=== PATIENT | female | born 1950 | race Caucasian/White ===

== ENCOUNTER 2019-08-18 03:38 | Emergency (ER) | payer OTHER ==
[~2019-08-18] VITALS: Ht 157.5 cm; Wt 82.6 kg
--- NOTE | ~2019-08-18 | EMS ---
[address] [address] EMS Patient Care Report Name: MALIK PETERSEN Room #: REG JIMMY Garcia#: [id number] Admission: 08/18/19 Attend Phys: Discharge: Date of : 50 Report #: [id number] THIS REPORT FOR: //name// Report Transmitted: 08/18/2019 03:27 EMS Care Summary [place], [place]/[facility] Incident [id number] @ 08/18/2019 02:48 Incident Location [address] [place], [place] [id number] Patient MALIK PETERSEN Female, 69 Years 1950 Patient Address [address] [place], [place] [id number] Patient History Hypertension, Patient Allergies Aspirin, Patient Medications Spironolactone, Pantoprazole, Metoprolol, Duloxetine, Amlodipine, Atorvastatin, Nystatin, Chief Complaint CARDIAC ARREST Disposition Transported [place] Dispatch Reason Cardiac Arrest/ Transported To [facility] Narrative M28 ARRIVES TO FIND 69 Y/O F PT PULSELESS AND APNEIC LYING ON HER BEDROOM FLOOR. PER FAMILY ON SCENE, PT "FAINTED" AND WAS FOUND TO BE IN CARDIAC ARREST. FAMILY BEGAN CPR INSTRUCTED BY CUTTER HOT KNIFE. [address] [address] EMS Patient Care Report Name: MALIK PETERSEN Room #: REG ER Radha#: [id number] Admission: 08/18/19 Attend Phys: Discharge: Date of : 50 Report #: [id number] ASSESSMENTS AND TREATMENTS NOTED. CPR CONTINUED THROUGHOUT UNLESS PAUSED FOR NO MORE THAN FIVE SECONDS FOR PULSE AND RHYTHM CHECKS. PT MOVED TO COT VIA SPINE BOARD. PT MOVED TO AMBULANCE. PT TRANSPORTED. M28 ARRIVES AT DESTINATION. PT MOVED TO ROOM IN ED. PT MOVED TO BED IN ROOM VIA SPINE BOARD. PT CARE TRANSFERRED. M28 RETURNS TO SERVICE. Initial Vitals @03:34P: 0,R: 15,GCS: 3,EtCO2: 77, @02:58P: 0,R: 12,Pain: 0/10,GCS: 3,Glucose: 198, @03:24P: 0,R: 12,Pain: 0/10,GCS: 3,EtCO2: 43, @03:36P: 0,R: 8,GCS: 3,EtCO2: 69, @03:20P: 0,R: 7,GCS: 3,EtCO2: 13, @03:29P: 0,R: 12,GCS: 3,EtCO2: 25, @03:14P: 0,R: 5,GCS: 3,EtCO2: 68, @03:09P: 0,R: 12,GCS: 3, @03:25P: 0,R: 6,Pain: 0/10,GCS: 3,EtCO2: 67, @03:03P: 0,R: 12,GCS: 3, Assessments @03:15MENTAL:Unresponsive,SKIN:Cyanotic,Pale,HEENT:Eyes: Left: Non-Reactive,Eyes: Left: Dilated,Eyes: Right: Dilated,Eyes: Right: Non-Reactive,Head/Face: No Abnormalities,Neck/Airway: No Abnormalities,LUNG SOUNDS:General: No Abnormalities,Left Upper: No Abnormalities,Right Upper: No Abnormalities,Left Lower: No Abnormalities,Right Lower: No Abnormalities,ABDOMEN:General: No Abnormalities,Left Upper: No Abnormalities,Right Upper: No Abnormalities,Left Lower: No Abnormalities,Right Lower: No Abnormalities,PELVIS//GI:No Abnormalities,EXTREMITIES:Left Arm: No Abnormalities,Right Arm: No Abnormalities,Left Leg: No Abnormalities,Right Leg: No Abnormalities,PULSE:Femoral: Absent,Carotid: Absent,NEURO:No Abnormalities,@03:00MENTAL:Unresponsive,SKIN:Pale,HEENT:Eyes: Right: Non-Reactive,Eyes: Left: Dilated,Eyes: Left: Non-Reactive,Eyes: Right: Dilated,LUNG SOUNDS:ABDOMEN:PELVIS//GI:EXTREMITIES:PULSE:Carotid: Absent,Femoral: Absent,NEURO: Impression Cardiac arrest Procedures @03:06Epinephrine 1:10 - 1 Milligrams (mg) - Intravenous (IV)Response: Unchanged@03:28Epinephrine 1:10 - 1 Milligrams (mg) - Intravenous (IV)Response: Unchanged@03:11Epinephrine 1:10 - 1 Milligrams (mg) - Intravenous (IV)Response: Unchanged@03:33Epinephrine 1:10 - 1 Milligrams (mg) - Intravenous (IV)Response: Unchanged@03:23Epinephrine 1:10 - 1 Milligrams (mg) - Intravenous (IV)Response: Unchanged@02:58ALS AssessmentResponse: UnchangedSucceeded@03:01Saline Lock 0cc (20 ga) Site: Antecubital-RightResponse: UnchangedSucceeded@03:02[facility] [address] [place] [address] EMS Patient Care Report Name: MALIK PETERSEN Room #: REG [facility]#: [id number] Admission: 08/18/19 Attend Phys: Discharge: Date of : 50 Report #: [id number] Response: UnchangedSucceeded@PTAResponse: ImprovedSucceeded@PTAResponse: ImprovedSucceeded Timeline HOUSEKEEPING MANAGER,Response: ImprovedSucceeded, HOUSEKEEPING MANAGER,Response: ImprovedSucceeded, 02:46,Call Received 02:46,Dispatch Notified 02:48,Dispatched 02:49,En Route 02:56,On Scene 02:58,At Patient 02:58,ALS Assessment,Response: UnchangedSucceeded, 02:58,BP: / M,PULSE: 0,RR: 12 R,SPO2: Ox,ETCO2: ,B,PAIN: 0,GCS: 3, 03:01,Saline Lock 0cc 20 ga Site: Antecubital-Right,Response: UnchangedSucceeded, 03:02,iGEL Response: UnchangedSucceeded, 03:03,BP: / M,PULSE: 0,RR: 12 R,SPO2: Ox,ETCO2: ,BG: ,PAIN: ,GCS: 3, 03:06,Epinephrine 1:10 - 1 Milligrams (mg) - Intravenous (IV),Response: Unchanged 03:09,BP: / M,PULSE: 0,RR: 12 R,SPO2: Ox,ETCO2: ,BG: ,PAIN: ,GCS: 3, 03:11,Epinephrine 1:10 - 1 Milligrams (mg) - Intravenous (IV),Response: Unchanged 03:14,BP: / M,PULSE: 0,RR: 5 R,SPO2: Ox,ETCO2: 68 ,BG: ,PAIN: ,GCS: 3, 03:20,BP: / M,PULSE: 0,RR: 7 R,SPO2: Ox,ETCO2: 13 ,BG: ,PAIN: ,GCS: 3, 03:23,Epinephrine 1:10 - 1 Milligrams (mg) - Intravenous (IV),Response: Unchanged 03:23,Depart Scene 03:24,BP: / M,PULSE: 0,RR: 12 R,SPO2: Ox,ETCO2: 43 ,BG: ,PAIN: 0,GCS: 3, 03:25,BP: / M,PULSE: 0,RR: 6 R,SPO2: Ox,ETCO2: 67 ,BG: ,PAIN: 0,GCS: 3, 03:28,Epinephrine 1:10 - 1 Milligrams (mg) - Intravenous (IV),Response: Unchanged 03:29,BP: / M,PULSE: 0,RR: 12 R,SPO2: Ox,ETCO2: 25 ,BG: ,PAIN: ,GCS: 3, 03:33,Epinephrine 1:10 - 1 Milligrams (mg) - Intravenous (IV),Response: Unchanged 03:34,BP: / M,PULSE: 0,RR: 15 R,SPO2: Ox,ETCO2: 77 ,BG: ,PAIN: ,GCS: 3, 03:34,At Destination 03:36,BP: / M,PULSE: 0,RR: 8 R,SPO2: Ox,ETCO2: 69 ,BG: ,PAIN: ,GCS: 3, 03:54,Call Closed Disclaimer v1.1 Copyright 2019 [employer] This EMS Care Summary contains data elements from the applicable legal record (which may be displayed differently). It is designed to provide pertinent information for the following purposes: continuity of care, clinical quality, and state data reporting. The complete legal record is available to ED staff [address] [address] EMS Patient Care Report Name: TRINITYMALIKParveen CARNEY Room #: REG [facility].#: [id number] Admission: 08/18/19 Attend Phys: Discharge: Date of : 50 Report #: [id number] and administrators of the receiving hospital in [facility]'s Patient Tracker. All data is provided "as is."
[~2019-08-18 03:38] MED LIST: AMLODIPINE BESY10 MG PO; CRESTOR20 MG PO; FLUOXETINE HCL20 M1 PO; LISINOPRIL30 MG PO; NORCO 5-325 TA1 EACH PO; PERCOCET 5-3251 EACH PO; PROTONIX40 M2 PO; SMZ/TMP PO; ZANTAC 150MG T150 M1 PO; ZOFRAN4 MG PO; [UNRECOGNIZED DRUG - OTHER] PO
[2019-08-18] MEDS ORDERED: LIPITOR40 MG PO (04:18)
[2019-08-18] MEDS ORDERED: CYMBALTA60 MG PO (04:18)
[2019-08-18] MEDS ORDERED: ERGOCALCIF50000 UNIT PO (04:19)
[2019-08-18] MEDS ORDERED: TOPROL XL100 MG PO (04:19)
[2019-08-18] MEDS ORDERED: LOSARTAN POTAS100 MG PO (04:19)
[2019-08-18] MEDS ORDERED: NYSTATIN TOP (04:20)
[2019-08-18] MEDS ORDERED: PROTONIX40 M2 PO (04:21)
[2019-08-18] MEDS ORDERED: DITROPAN XL10 M1 PO (04:21)
[2019-08-18] MEDS ORDERED: SPIRONOLACTONE25 M1 PO (04:21)
[2019-08-18] MEDS ORDERED: ZANAFLEX4 MG PO (04:22)
--- NOTE | 2019-08-18 13:31 | EKG ---
[address] [address] [place] [address] ELECTROCARDIOGRAM REPORT Name: TRINITYMALIK ROMMEL [facility] [id number] Admission: 08/18/19 Attend Phys: Discharge: 08/18/19 Date of : 50 Report #: [id number] THIS REPORT FOR: //name// [facility] ED Test Date: 2019-08-18 Test Time: 03:44:20 Pat Name: MALIK PETERSEN Department: Room: Gender: F Environmental Compliance Officer: LUIS DANIEL : 1950 Requested By: Loki Sneed Order Number: [id number] MD: Alber Veloz Measurements Intervals Lund Rate: 83 P: 0 WA: 52 QRS: 95 QRSD: 153 T: -89 QT: 423 QTc: 497 Interpretive Statements Accelerated junctional rhythm Rightward axis Intraventricular conduction delay, right bundle branch block morphology no previous ECGs available for comparison Electronically Signed On 08-18-2019 13:30:52 CDT by Alber Veloz [email or web address] <ELECTRONICALLY SIGNED> By: Alber Veloz MD, FACC 08/18/19 1330 0344 [id number] Alber Veloz MD, FACC /EPI
== END 2019-08-18 06:31 ==
LOC: ER 03:38
DX: I46.9 Cardiac arrest, cause unspecified (principal); I10 Essential (primary) hypertension; E78.00 Pure hypercholesterolemia, unspecified; K21.9 Gastro-esophageal reflux disease without esophagitis; Z98.890 Other specified postprocedural states; Z88.6 Allergy status to analgesic agent; Z88.8 Allergy status to other drugs, medicaments and biological substances